=== PATIENT | male | born 1990 | race Caucasian/White ===

== ENCOUNTER 2017-05-13 09:27 | Emergency (ER) | payer SELFPAY ==
[2017-05-13 09:35] VITALS: BP 116/78
[2017-05-13 10:04] LABS: Basophils % (Auto) 0.8 % (0.0-1.8); Eosinophils % (Auto) 3.3 % (0.0-4.3); Hematocrit 44.7 % (35.5-45.6); Hemoglobin 15.3 gm/dl (11.8-15.2); Mean Corpuscular HGB Conc 34 % (32-34); Mean Corpuscular Hemoglobin 30 pg (28-32); Mean Corpuscular Volume 89 fl (84-94); Platelet Count 248 K/mm3 (140-440); Red Blood Count 5.04 M/mm3 (3.65-5.03); Red Cell Distribution Width 13.3 % (13.2-15.2); White Blood Count 7.1 K/mm3 (4.5-11.0)
[2017-05-13 10:11] LABS: Albumin 4.4 g/dL (3.9-5); Albumin/Globulin Ratio 1.6 %; Alkaline Phosphatase 59 units/L (35-129); Anion Gap 18 mmol/L; Blood Urea Nitrogen 8 mg/dL (9-20); Carbon Dioxide 25 mmol/L (22-30); Chloride 101.3 mmol/L (98-107); Glucose 82 mg/dL (75-100); Lipase 17 units/L (13-60); Potassium 4.2 mmol/L (3.6-5.0); Sodium 140 mmol/L (137-145); Total Protein 7.1 g/dL (6.3-8.2)
[2017-05-13 10:14] LABS: Alanine Aminotransferase < 5 units/L (7-56)
[2017-05-13] MEDS ORDERED: PERCOCET 5/325 PO ONE (11:09)
[2017-05-13 11:14] LABS: Bilirubin,Urine NEG (Negative); Blood,Urine NEG (Negative); Ketones,Urine NEG (Negative); Leukocyte Esterase,Urine NEG (Negative); Mucus,Urine 2+ /HPF; Nitrite,Urine NEG (Negative)
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
--- NOTE | 2017-05-13 12:28 | Ultrasound Report ---
ULTRASOUND TESTICULAR DOPPLER COMPLETE History: Right testicular pain. Technique: Trans-scrotal ultrasound with spectral doppler interrogation. Findings: Both testes and epididymides are normal size, contour and echotexture. No hydrocele or varicocele. No mass or pathologic calcifications. Doppler interrogation depicts symmetric arterial flow to both testes. IMPRESSION: Unremarkable testicular ultrasound.
--- NOTE | 2017-05-13 12:28 | Ultrasound Report ---
ULTRASOUND ABDOMEN COMPLETE: Technique: Transabdominal ultrasound with color Doppler interrogation. History: Right abdominal pain. Findings: The liver is normal size, contour and echotexture. The gallbladder dimensions are within normal limits without intraluminal stone, wall thickening, or pericholecystic fluid. The CBD is normal caliber. The visualized portions of the pancreas including the head and proximal body are within normal limits. The kidneys demonstrate no hydronephrosis or mass. Cortical thickness and echogenicity are within normal limits bilaterally. The spleen and aorta are within normal limits. No aneurysmal dilatation is noted. No ascites. The bladder is unremarkable. IMPRESSION: Unremarkable abdominal ultrasound.
--- NOTE | 2017-05-13 12:57 | XRay Report ---
SUPINE KUB: Abdominal pain. The abdominal gas pattern is unremarkable. No masses or organomegaly is identified and there is no gross evidence of free air or fluid. No significant soft tissue calcifications are noted. IMPRESSION: Normal study.
== END 2017-05-13 14:05 | disposition home or self-care (01) ==
LOC: ED 09:27
DX: R10.84 Generalized abdominal pain (principal)
CPT/HCPCS: 36415; 74020; 76700; 80053; 81001; 83690; 85025; 93975